=== PATIENT | male | born 1990 | race Caucasian/White ===

== ENCOUNTER 2021-12-23 23:55 | Emergency (ER) | payer OTHER, SELFPAY ==
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
[2021-12-23 23:57] VITALS: BP 139/76; PULSE 106; RESP 18; TEMP 36.4; O2SAT 99
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
[2021-12-24 01:27] VITALS: BP 143/73; PULSE 80; RESP 18; O2SAT 98
== END 2021-12-24 01:29 | disposition home or self-care (01) ==
PROVIDERS: Emergency Provider Emergency Medicine; PCP Family Medicine
DX: S69.92XA Unspecified injury of left wrist, hand and finger(s), initial encounter (principal); X50.9XXA Other and unspecified overexertion or strenuous movements or postures, initial encounter
CPT/HCPCS: 29125; 73130; 99283